=== PATIENT | female | born 1980 | race American Indian/Alaskan Native ===

== ENCOUNTER 2019-05-21 10:48 | Day surgery (SDC) | payer OTHER ==
--- NOTE | 2019-05-21 11:14 | Emergency Department Report ---
HPI - General Time Seen by Provider: 05/21/19 10:57 - HPI HPI: 39-year-old female presents to the emergency department, sent in by the office of her PROJECTION PRINTER Dr. Manpreet Benavidez, with the report of a right- sided ectopic . With this , the patient is with 2 previous miscarriages. The patient says that she was having some vaginal spotting over the past few days and went into the [facility] office for concern for a threatened miscarriage. She had her hormone level checked 2 days ago and was told to return today. In between that time, the patient says that she's been having some diarrhea and a little bit of right-sided abdominal discomfort. She took a tramadol for her discomfort that she had from a previous miscarriage, as the patient says that this felt the same. While she was at the [facility] office today, they noticed that she did not look well and decided to do an ultrasound that shows a right-sided ectopic . The patient is due to be taken to the operating room shortly by Dr. Benavidez. ED Past Medical Hx - Past Medical History Previous Medical History?: No - Surgical History Past Surgical History?: Yes Additional Surgical History: right foot - Social History Smoking Status: Former Smoker Substance Use Type: Alcohol, Marijuana ED Review of Systems ROS: Stated complaint: POSITIVE EPTOPIC Other details as noted in HPI Comment: All other systems reviewed and negative Constitutional: denies: chills, fever Eyes: denies: eye pain, vision change ENT: denies: ear pain, throat pain Respiratory: denies: cough, shortness of breath Cardiovascular: denies: chest pain Gastrointestinal: abdominal pain, diarrhea Genitourinary: other (vaginal spotting). denies: dysuria, discharge Musculoskeletal: denies: back pain, arthralgia Skin: denies: rash, lesions Neurological: denies: headache, weakness Physical Exam - Physical Exam Vital Signs: Vital Signs 05/21/19 10:54 Temperature 97.9 F Pulse Rate 82 Respiratory 18 Rate Blood Pressure 117/63 O2 Sat by Pulse 98 Oximetry Physical Exam: GENERAL: The patient is well-developed well-nourished. HENT: Normocephalic. Atraumatic. Patient has moist mucous membranes. EYES: Extraocular motions are intact. NECK: Supple. Trachea is midline. CHEST/LUNGS: Clear to auscultation. There is no respiratory distress noted. HEART/CARDIOVASCULAR: Regular. There is no tachycardia. There is no murmur. ABDOMEN: Abdomen is soft. Mild right lower quadrant abdominal and pelvic pain to palpation. No guarding. Patient has normal bowel sounds. There is no abdominal distention. SKIN: Skin is warm and dry. NEURO: The patient is awake, alert, and oriented. The patient is cooperative. The patient has no focal neurologic deficits. Normal speech. MUSCULOSKELETAL: There is no tenderness or deformity. There is no evidence of acute injury. ED Course Vital Signs 05/21/19 10:54 Temperature 97.9 F Pulse Rate 82 Respiratory 18 Rate Blood Pressure 117/63 O2 Sat by Pulse 98 Oximetry ED Medical Decision Making - Lab Data Result diagrams: 05/21/19 11:21 - Medical Decision Making This patient was sent in by the [facility] with a confirmed right ectopic adnexal . Patient appears hemodynamically stable. Vital signs stable. Mild leukocytosis. Patient is being brought to the operating room for treatment by Dr. Manpreet Benavidez. - Differential Diagnosis ectopic , miscarriage, Critical Care Time: No Critical care attestation.: If time is entered above; I have spent that time in minutes in the direct care of this critically ill patient, excluding procedure time. ED Disposition Clinical Impression: Ectopic Disposition: OP ADMIT IP TO THIS HOSP Is pt being admited?: Yes Condition: Serious Time of Disposition: 12:06
[2019-05-21 11:28] VITALS: BP 117/63
[2019-05-21 11:41] LABS: Hemoglobin 13.7 gm/dl (10.1-14.3); Mean Corpuscular HGB Conc 35 % (30-34); Mean Corpuscular Volume 96 fl (79-97); Platelet Count 276 K/mm3 (140-440); Red Blood Count 4.07 M/mm3 (3.65-5.03); Red Cell Distribution Width 12.8 % (13.2-15.2)
[2019-05-21] MEDS ORDERED: ANCEF/STERILE WATER 2 GM/20 ML 2 GM/20 ML SYRINGE IV NR (12:00)
[2019-05-21] MEDS ORDERED: LACTATED RINGERS 1,000 ML IV SCH (12:00)
--- NOTE | 2019-05-21 12:34 | Short Stay Summary ---
Short Stay Documentation Date of service: 05/21/19 Narrative H&P: Pt is a 39-year-old female LMP 03/31/19 presents to the emergency department, sent in by the office with the report of a right-sided ectopic - diagnosed by pelvic u/s today. She says that she was having some vaginal spotting over the past few days and went into the [facility] office for concern for a threatened miscarriage. She had her hormone level checked 2 days ago and was told to return today. In between that time, the patient says that she's been having some diarrhea and a little bit of right-sided abdominal discomfort. She took a tramadol for her discomfort that she had from a previous miscarriage, as the patient says that this felt the same. While she was at the [facility] office today, they noticed that she did not look well and decided to do an ultrasound that showed a right-sided ectopic . She is therefore admitted for a possible Laparoscopic Salpingectomy. - History Principal diagnosis: Right ectopic pregnany H&P: obtained from office Past Medical History: No medical history Past Surgical History: Other (foot surgery) Social history: no significant social history, single - Allergies and Medications Current Medications: Allergies No Known Allergies Allergy (Verified 05/21/19 11:10) Active Medications Lactated Ringer's (Lactated Ringers) 1,000 mls @ 125 mls/hr IV DIRECT MARIA LUISA Cefazolin Sodium (Ancef/Sterile Water 2 Gm/20 Ml) 2 gm in 20 mls @ 80 mls/hr IV PREOP NR; Protocol Stop: 05/21/19 23:00 - Physical exam General appearance: mild distress Integumentary: no rash HEENT: Atraumatic Lungs: Clear to auscultation Breasts: deferred Heart: Regular rate Gastrointestinal: normal Female Genitourinary: deferred Rectal Exam: deferred Extremities: no ischemia, No edema Neurological: Normal speech - Brief post op/procedure progress note Date of procedure: 05/21/19 Pre-op diagnosis: 1. Ruptured right ectopic Post-op diagnosis: same (hematoperitoneum) Procedure: Laparoscopic right salpingectomy Anesthesia: GETA Findings: Normal uterus with approximately 400 mL's of hematoperitoneum, normal left fallopian tube and ovary, right fallopian tube with enlarged mass occupying the entire fallopian tube and normal right ovary. Surgeon: SHASTA POTTS Estimated blood loss: other (400ml hemoperitoneum) Pathology: list (Right fallopian tube) Specimen disposition: to lab Condition: stable - Hospital course Hospital course: Unremarkable - Disposition Condition at discharge: Good Disposition: DC- TO HOME OR SELFCARE - Discharge Diagnoses (1) Ectopic Status: Resolved Qualifiers: Location of ectopic : tubal Intrauterine status: without intrauterine Laterality: right Qualified Code(s): O00.101 - Right tubal without intrauterine (2) Hemoperitoneum Status: Resolved (3) Hemoperitoneum due to rupture of right tubal ectopic Status: Resolved Short Stay Discharge Plan Activity: no restrictions Weight Bearing Status: Non-Weight Bearing Diet: regular Wound: open to air, keep clean and dry Follow up with: SHASTA POTTS MD [Primary Care Provider] - 7 Days Prescriptions: HYDROcodone/APAP 5-325 [Orange 5/325] 1 each PO Q6HR PRN #30 tablet PRN Reason: Pain
--- NOTE | 2019-05-21 15:53 | Operative Report ---
Operative Report Operative Report: Date of procedure: 05/21/2019 Pre-operative diagnosis: Right ectopic Post-operative diagnosis: 1. Ruptured right ectopic 2. Hematoperitoneum Procedure name(s): Laparoscopic right salpingectomy Surgeon: Manpreet Benavidez MD Supervisor [employer]: None Anesthesia: Gen. endotracheal intubation by Dr. Raman EBL: 400 mL's of hematoperitoneum Findings: A normal uterus with normal left fallopian tube and ovary, right fallopian tube showed an enlarged mass occupying the entire right fallopian t ube. Normal ovary. Approximately 400 mL's of hematoperitoneum. Procedure: After the patient was correctly identified, she was prepped and draped in the usual straw fashion and placed in the lithotomy position. Next the bladder was emptied using straight catheter, and the speculum space and the vaginal vault. The anterior lip of the cervix was grasped using single-tooth tenaculum and the uterine manipulator was then placed and the tenaculum and speculum were removed. Attention was then turned to the abdomen where first a periumbilical incision was made using the skin knife, and the Optiview trocar was inserted under direct visualization. After an adequate amount for abdominal insufflation, visualization of the pelvic organs found large amounts of blood and blood clots in the peritoneal cavity. A suprapubic incision was made through which a 5 mm trocar was placed, and the suction infusion rn was used to suction approximate 400 mL of blood and blood clots. The uterus appeared to be normal with normal left fallopian tube and ovary, and the right fallopian tube showed an enlarged mass occupying the entire right fallopian tube. A right paramedian incision was made through which another 5 mm trocar was placed in order to clamp, cauterize and cut cross the right fallopian tube excising the entire right fallopian tube. Copious amounts of irrigation was then performed, and after good hemostasis was assured the procedure was considered complete. The Tisseel Sealant was sprayed across the salpingectomy site, and excellent hemostasis was assured. All instruments are then removed from the abdomen, the abdomen deflated, and the periumbilical incision was closed using 0 Vicryl suture in a [id number] configuration of the fascia followed by 4 Monocryl suture in a sub-cuticular fashion on the skin. The suprapubic and right paramedian incisions were closed in similar fashion. Each incision was infiltrated using 0.5% Marcaine solution. The uterine manipulator was removed. The Chavira catheter also removed. The patient tolerated the procedure well and was transported to recovery room in stable condition.
== END 2019-05-21 10:49 | disposition home or self-care (01) ==
LOC: OR 10:48 → ED 10:48 → OR 10:49 → EDSTATUS 11:54
PROVIDERS: ATTEND Emergency Medicine
DX: O00.101 Right tubal pregnancy without intrauterine pregnancy (principal); K66.1 Hemoperitoneum; Z53.8 Procedure and treatment not carried out for other reasons; Z79.899 Other long term (current) drug therapy; Z87.891 Personal history of nicotine dependence
CPT/HCPCS: 36415; 84703; 85027; 86850; 86900; 86901; 99283; J0690; J7120

== ENCOUNTER 2019-05-21 12:08 | Day surgery (SDC) | payer OTHER ==
[~2019-05-21 12:08] MED LIST: LACTATED RINGERS 1,000 ML IV SCH
[2019-05-21] MEDS ORDERED: SUBLIMAZE IV PRN (12:25)
[2019-05-21] MEDS ORDERED: ZOFRAN IV PRN (12:25)
--- NOTE | 2019-05-21 12:29 | Anesthesia Consultation ---
Anesthesia Consult and Med Hx Date of service: 05/21/19 - Airway Anesthetic Teeth Evaluation: Good, Caps ROM Head & Neck: Adequate Mental/Hyoid Distance: Adequate Mallampati Class: Class I Intubation Access Assessment: Good - Pre-Operative Health Status ASA Pre-Surgery Classification: ASA1, Emergency Proposed Anesthetic Plan: General - Pulmonary Hx Smoking: No Hx Sleep Apnea: No - Hematic Hx Sickle Cell Disease: No
--- NOTE | 2019-05-21 12:29 | Anesthesia Day of Surgery ---
Anesthesia Day of Surgery - Day of Surgery Patient Examined: Yes Patient H&P Reviewed: Yes Patient is NPO: Yes
[2019-05-21] MEDS ORDERED: VERSED IV NR (13:00)
[2019-05-21] MEDS ORDERED: MORPHINE IV NR (13:00)
[2019-05-21] MEDS ORDERED: MARCAINE 0.5% INFILTRATI ONE ×2 (13:52→14:30)
[2019-05-21] MEDS ORDERED: QUELICIN ONE (13:53)
[2019-05-21] MEDS ORDERED: SUBLIMAZE ONE (13:53)
[2019-05-21] MEDS ORDERED: VERSED ONE (13:53)
[2019-05-21] MEDS ORDERED: XYLOCAINE MPF 2% ONE (13:53)
[2019-05-21] MEDS ORDERED: DIPRIVAN 10 MG/ML IV ONE (13:53)
[2019-05-21] MEDS ORDERED: NACL 0.9% IR ONE ×2 (14:30)
[2019-05-21] MEDS ORDERED: DECADRON ONE (14:49)
[2019-05-21] MEDS ORDERED: ZOFRAN ONE (14:49)
[2019-05-21] MEDS ORDERED: ZEMURON IV ONE (14:49)
[2019-05-21] MEDS ORDERED: REGLAN ONE (14:49)
[2019-05-21] MEDS ORDERED: TORADOL ONE (14:49)
[2019-05-21] MEDS ORDERED: BLOXIVERZ ONE (14:51)
[2019-05-21] MEDS ORDERED: ROBINUL ONE (14:51)
[2019-05-21] MEDS ORDERED: DILAUDID ONE (15:06)
[2019-05-21] MEDS ORDERED: NORCO 5/325 PO PRN (16:20)
[2019-05-21 16:40] VITALS: BP 103/53
--- NOTE | 2019-05-21 16:49 | Post Anesthesia Evaluation ---
- Post Anesthesia Evaluation Patient Participated: Yes Airway Patent: Yes Stable Respiratory Function: Yes Nausea/Vomiting: No Temp > 96.8F: Yes Pain Manageable: Yes Adequeate Hydration: Yes Anesthesia Complications: No Block Receding Appropriately: Not Applicable Patient on Ventilator: No
--- NOTE | 2019-05-24 11:05 | Operative Report ---
Operative Report Operative Report: Date of procedure: 05/21/2019 Pre-operative diagnosis: Right ectopic Post-operative diagnosis: 1. Ruptured right ectopic 2. Hematoperitoneum Procedure name(s): Laparoscopic right salpingectomy Surgeon: Manpreet Benavidez MD Airplane First Officer: None Anesthesia: Gen. endotracheal intubation by Dr. Raman EBL: 400 mL's of hematoperitoneum Findings: A normal uterus with normal left fallopian tube and ovary, right fallopian tube showed an enlarged mass occupying the entire right fallopian t ube. Normal ovary. Approximately 400 mL's of hematoperitoneum. Procedure: After the patient was correctly identified, she was prepped and draped in the usual straw fashion and placed in the lithotomy position. Next the bladder was emptied using straight catheter, and the speculum space and the vaginal vault. The anterior lip of the cervix was grasped using single-tooth tenaculum and the uterine manipulator was then placed and the tenaculum and speculum were removed. Attention was then turned to the abdomen where first a periumbilical incision was made using the skin knife, and the Optiview trocar was inserted under direct visualization. After an adequate amount for abdominal insufflation, visualization of the pelvic organs found large amounts of blood and blood clots in the peritoneal cavity. A suprapubic incision was made through which a 5 mm trocar was placed, and the suction mainspring strip inspector was used to suction approximate 400 mL of blood and blood clots. The uterus appeared to be normal with normal left fallopian tube and ovary, and the right fallopian tube showed an enlarged mass occupying the entire right fallopian tube. A right paramedian incision was made through which another 5 mm trocar was placed in order to clamp, cauterize and cut cross the right fallopian tube excising the entire right fallopian tube. Copious amounts of irrigation was then performed, and after good hemostasis was assured the procedure was considered complete. The Tisseel Sealant was sprayed across the salpingectomy site, and excellent hemostasis was assured. All instruments are then removed from the abdomen, the abdomen deflated, and the periumbilical incision was closed using 0 Vicryl suture in a [id number] configuration of the fascia followed by 4 Monocryl suture in a sub-cuticular fashion on the skin. The suprapubic and right paramedian incisions were closed in similar fashion. Each incision was infiltrated using 0.5% Marcaine solution. The uterine manipulator was removed. The Chavira catheter also removed. The patient tolerated the procedure well and was transported to recovery room in stable condition.
--- NOTE | 2019-05-24 11:06 | Short Stay Summary ---
Short Stay Documentation Date of service: 05/21/19 Narrative H&P: Pt is a 39-year-old female LMP 03/31/19 presents to the emergency department, sent in by the office with the report of a right-sided ectopic - diagnosed by pelvic u/s today. She says that she was having some vaginal spotting over the past few days and went into the [facility] office for concern for a threatened miscarriage. She had her hormone level checked 2 days ago and was told to return today. In between that time, the patient says that she's been having some diarrhea and a little bit of right-sided abdominal discomfort. She took a tramadol for her discomfort that she had from a previous miscarriage, as the patient says that this felt the same. While she was at the [facility] office today, they noticed that she did not look well and decided to do an ultrasound that showed a right-sided ectopic . She is therefore admitted for a possible Laparoscopic Salpingectomy. - History Principal diagnosis: Right ectopic pregnany H&P: obtained from office Past Medical History: No medical history Past Surgical History: Other (foot surgery) Social history: no significant social history, single - Allergies and Medications Current Medications: Allergies No Known Allergies Allergy (Verified 05/21/19 11:10) Active Medications Lactated Ringer's (Lactated Ringers) 1,000 mls @ 125 mls/hr IV DIRECT MARIA LUISA Cefazolin Sodium (Ancef/Sterile Water 2 Gm/20 Ml) 2 gm in 20 mls @ 80 mls/hr IV PREOP NR; Protocol Stop: 05/21/19 23:00 - Physical exam General appearance: mild distress Integumentary: no rash HEENT: Atraumatic Lungs: Clear to auscultation Breasts: deferred Heart: Regular rate Gastrointestinal: normal Female Genitourinary: deferred Rectal Exam: deferred Extremities: no ischemia, No edema Neurological: Normal speech - Brief post op/procedure progress note Date of procedure: 05/21/19 Pre-op diagnosis: 1. Ruptured right ectopic Post-op diagnosis: same (hematoperitoneum) Procedure: Laparoscopic right salpingectomy Anesthesia: GETA Findings: Normal uterus with approximately 400 mL's of hematoperitoneum, normal left fallopian tube and ovary, right fallopian tube with enlarged mass occupying the entire fallopian tube and normal right ovary. Surgeon: SHASTA POTTS Estimated blood loss: other (400ml hemoperitoneum) Pathology: list (Right fallopian tube) Specimen disposition: to lab Condition: stable - Hospital course Hospital course: Unremarkable - Disposition Disposition: TO HOME OR SELFCARE - Discharge Diagnoses (1) Ectopic Status: Resolved Qualifiers: Qualifiers: tubal Qualifiers: without intrauterine Qualifiers: right Qualifiers: [id number] Qualifiers: [id number] (2) Hemoperitoneum Status: Resolved (3) Hemoperitoneum due to rupture of right tubal ectopic Status: Resolved Short Stay Discharge Plan Activity: no restrictions Weight Bearing Status: Non-Weight Bearing Diet: regular Wound: open to air, keep clean and dry Follow up with: MEERA SCHAEFER [Primary Care Provider] - 7 Days Forms: Work/School Excuse Out Patient, [facility]
== END 2019-05-21 17:50 | disposition home or self-care (01) ==
LOC: OR 12:08
PROVIDERS: ATTEND Obstetrics & Gynecology
DX: O00.101 Right tubal pregnancy without intrauterine pregnancy (principal); K66.1 Hemoperitoneum; Z79.899 Other long term (current) drug therapy; Z87.891 Personal history of nicotine dependence; Z98.890 Other specified postprocedural states
CPT/HCPCS: 36415; 59151; 84702; 86850; 86900; 86901; 88305; A4217; C9250; J0330; J1100; J1170; J1885; J2250; J2270; J2405; J2704; J2710; J2765; J3010; J7120